=== PATIENT | male | born 1985 | race Caucasian/White ===

== ENCOUNTER 2017-12-14 12:25 | Emergency (ER) | payer MEDICAID ==
[~2017-12-14] VITALS: Ht 175.3 cm; Wt 72.7 kg
[2017-12-14 12:42] VITALS: BP 124/76
[2017-12-14] MEDS ORDERED: NAPR-56 PO (13:19)
[2017-12-14] MEDS ORDERED: PENI250T2 PO (13:19)
== END 2017-12-14 13:23 | disposition home or self-care (01) ==
LOC: ER 12:25
DX: K04.7 Periapical abscess without sinus (principal); Z79.2 Long term (current) use of antibiotics
CPT/HCPCS: 99283